=== PATIENT | male | born 1975 | race Caucasian/White ===

== ENCOUNTER 2022-06-19 02:08 | Day surgery (SDC) | payer OTHER ==
[~2022-06-19 02:08] MED LIST: ARIP30 PO; ATEN50 PO; CIPR250 PO; HYDACE5 PO; RISP3; RISP4 PO; ZOLP10; [UNRECOGNIZED DRUG - CODE] PO
[2022-06-19] MEDS ORDERED: EUTHYROX50 MC1 PO (10:45)
[2022-06-19] MEDS ORDERED: PALIPERIDONE ER3 MG PO (10:45)
[2022-06-19] MEDS ORDERED: TOPI50 PO (10:45)
[2022-06-19] MEDS ORDERED: LAMICTAL200 MG PO (10:46)
[2022-06-19] MEDS ORDERED: ZOLOFT50 MG PO (10:46)
[2022-06-19] MEDS ORDERED: Ativan1 MG PO (10:47)
== END 2022-06-19 10:52 | disposition home or self-care (01) ==
LOC: ATC 02:08
DX: N39.44 Nocturnal enuresis (principal); E11.9 Type 2 diabetes mellitus without complications; I10 Essential (primary) hypertension; E03.9 Hypothyroidism, unspecified; G47.33 Obstructive sleep apnea (adult) (pediatric); Z79.84 Long term (current) use of oral hypoglycemic drugs
CPT/HCPCS: 51798

== ENCOUNTER → 2024-10-02 | Outpatient (CLI) | payer OTHER ==
[~2024-10-02] MED LIST changes: +Ativan1 MG PO; +EUTHYROX50 MC1 PO; +LAMICTAL200 MG PO; +PALIPERIDONE ER3 MG PO; +TOPI50 PO; +ZOLOFT50 MG PO
[2024-10-02 19:51] LABS: Microalb/Creat Ratio UR, Rand 4.376 mg/g (0.000-30.000); Microalbumin, Random Urine 8.27 mg/L (0.000-20.000)
== END ==
LOC: LAB 12:10 → LAB SHORT 12:10
PROVIDERS: Internal Medicine
DX: E11.9 Type 2 diabetes mellitus without complications (principal)
CPT/HCPCS: 82043; 82570